=== PATIENT | female | born 2000 | race Caucasian/White ===

== ENCOUNTER 2018-01-24 17:05 | Outpatient (CLI) | payer OTHER ==
[~2018-01-24] VITALS: Ht 160 cm; Wt 97.7 kg
[2018-01-24] VITALS (8 sets, daily range): BP systolic 119–136; BP diastolic 69–89; PULSE 82–102; TEMP 98.6
[2018-01-24] MEDS ORDERED: PRENATAL1 TA7 PO (17:16)
[2018-01-24 17:44] LABS: COLLECTION METHOD CATHETER
[2018-01-24 17:48] LABS: HEMOGLOBIN 11.6 g/dl (12.0-15.0); MEAN CELL VOLUME 88 fl (80.0-95.0); MEAN CORPUSCULAR HEMOGLOBIN 31 pg (26.0-32.0); MEAN CORPUSCULAR HGB CONC 35 g/dl (33.0-37.0); MEAN PLATELET VOLUME 10.5 fl (7.4-10.4); PLATELET COUNT 241 K/mm3 (130-400); RED BLOOD COUNT 3.78 M/mm3 (4.10-5.30); REDCELL DISTRIBUTION WIDTH-CV 13.1 % (11.5-14.5)
[2018-01-24 17:51] LABS: HEMATOCRIT 33.4 % (35.0-45.0)
[2018-01-24 17:52] LABS: URINE APPEARANCE Hazy; URINE COLOR Straw
[2018-01-24 17:53] LABS: PH 8 (5-8); URINE BILIRUBIN Negative (NEGATIVE); URINE BLOOD Negative (NEGATIVE); URINE GLUCOSE Negative (NEGATIVE); URINE KETONE 1+ (NEGATIVE); URINE LEUKOCYTE ESTERASE Negative (NEGATIVE); URINE NITRATE Negative (NEGATIVE); URINE PROTEIN(semi-quant) 1+ (NEGATIVE); URINE UROBILINOGEN Negative (NEGATIVE)
[2018-01-24 17:55] LABS: AMORPHOUS CRYSTAL Present /uL; SQUAMOUS EPITHELIAL 20-50 /hpf; URINE RBC None Seen /hpf
[2018-01-24 18:01] LABS: ALBUMIN 3.2 gm/dL (3.5-5.0); CALCIUM 8.7 mg/dL (8.4-10.2); CREATININE, serum 0.41 mg/dL (0.52-1.25); POTASSIUM 3.3 mmol/L (3.4-5.0); TOTAL PROTEIN 6.2 gm/dL (6.4-8.2)
== END 2018-01-24 18:35 | disposition home or self-care (01) ==
LOC: LDRO 17:05
PROVIDERS: Student in an Organized Health Care Education/Training Program
DX: O60.03 Preterm labor without delivery, third trimester (principal); Z3A.36 36 weeks gestation of pregnancy
CPT/HCPCS: J7120

== ENCOUNTER 2018-05-12 09:35 | Day surgery (SDC) | payer OTHER, MEDICAID ==
[~2018-05-12] VITALS: Ht 160 cm; Wt 87.7 kg
[~2018-05-12 09:35] MED LIST: PRENATAL1 TA7 PO
[2018-05-12 09:55] VITALS: BP 116/77; PULSE 61; TEMP 97
[2018-05-12 11:55] VITALS: BP 112/78; PULSE 64; TEMP 98
[2018-05-12 12:10] VITALS: BP 106/66; PULSE 62
[2018-05-12 12:25] VITALS: BP 100/70; PULSE 58
[2018-05-12 12:40] VITALS: BP 102/62; PULSE 80
== END 2018-05-12 13:00 | disposition home or self-care (01) ==
LOC: SDCO 09:35
DX: K92.1 Melena (principal); R10.13 Epigastric pain; K60.1 Chronic anal fissure
CPT/HCPCS: J2250; J3010; J7030